=== PATIENT | female | born 1990 | race Caucasian/White ===

== ENCOUNTER → 2019-02-02 13:59 | Outpatient (CLI) | payer BC, SELFPAY ==
[2019-02-02 13:41] VITALS: BMI 24.0
[2019-02-02 14:22] LABS: Absolute Lymphocyte Count 1.96 X10^3/ul (0.83-4.51); Basophil# 0.03 X10^3/uL; Basophil% 0.3 % (0-1); Eosinophil# 0.07 X10^3/uL; Eosinophils% 0.6 % (0-5); Hematocrit 39.3 % (37-47); Hemoglobin 13.5 g/dl (12.0-15.0); Lymphocyte # 1.96 X10^3/ul (4.0); Lymphocyte % 17.9 % (19-41); Mean Corp Hgb Conc 34.4 g/gl (32-36); Mean Corpuscular Hgb 31.3 pg (27.0-32.0); Mean Platelet Vol. 8.7 fl (6.2-12.0); Monocyte# 0.81 X10^3/uL; Monocyte% 7.4 % (0-10); Neutrophil # 8.03 X10^3/uL (2.7-7.7); Neutrophil % 73.6 % (47-70); POSITIVE COUNT NO; POSITIVE DIFFERENTIAL NO; POSITIVE MORPHOLOGY NO; Platelet Count 304 K/mm3 (150-450); RBC Distribution Width CV 12.3 % (11.6-14.6); RBC Distribution Width SD 40.9 fl (35.1-43.9); Red Blood Count 4.32 M/mm3 (4.2-5.4); White Blood Count 10.9 K/mm3 (4.4-11.0)
[2019-02-02 15:43] LABS: HIV - WCH Non-Reactive (Nonreactive); Rubella IgG 129.4 IU/mL
[2019-02-02 20:49] LABS: Chlamydia Trachomatis by PCR Negative (Negative); Neisserai gonorrhoeae by PCR Negative (Negative); Probe Check PASS; Sample Adequacy Control PASS; Specimen Processing Control PASS
[2019-02-04 15:19] LABS: HEPATITIS B SURFACE AG Negative (Negative)
[2019-02-06 09:07] LABS: HPV Reflexed? NOT INDICATED
== END ==
PROVIDERS: Visit Provider Obstetrics & Gynecology
DX: Z12.4 Encounter for screening for malignant neoplasm of cervix (principal); Z3A.08 8 weeks gestation of pregnancy; Z34.90 Encounter for supervision of normal pregnancy, unspecified, unspecified trimester
CPT/HCPCS: 36415; 85025; 86592; 86703; 86762; 86850; 86900; 87086; 87088; 87340; 87491; 87591; 87624; 88175; G0145

== ENCOUNTER → 2019-03-03 | Outpatient (CLI) | payer BC, SELFPAY ==
[2019-03-03 15:09] VITALS: BMI 24.0
== END | disposition home or self-care (01) ==
LOC: LAB 15:59
PROVIDERS: Referring Provider Obstetrics & Gynecology; Visit Provider Obstetrics & Gynecology
DX: Z34.81 Encounter for supervision of other normal pregnancy, first trimester (principal)
CPT/HCPCS: 36415

== ENCOUNTER → 2019-03-31 | Outpatient (CLI) | payer BC, SELFPAY ==
[2019-03-31 15:48] VITALS: BMI 24.0
== END | disposition home or self-care (01) ==
PROVIDERS: Referring Provider Nurse Practitioner Women's Health; Visit Provider Nurse Practitioner Women's Health
DX: Z36.9 Encounter for antenatal screening, unspecified (principal)
CPT/HCPCS: 36415

== ENCOUNTER → 2019-06-16 | Outpatient (CLI) | payer BC, SELFPAY ==
[2019-06-16 16:08] VITALS: BMI 24.0
[2019-06-16 17:23] LABS: Absolute Lymphocyte Count 1.94 X10^3/uL (0.83-4.51); Absolute Neutrophil Count 10.3 X10^3/uL (2.0-7.7); Basophil# 0.05 X10^3/uL; Basophil% 0.4 % (0-1); Eosinophil# 0.12 X10^3/uL; Eosinophils% 0.9 % (0-5); Hematocrit 35.1 % (37-47); Hemoglobin 12.5 g/dL (12.0-15.0); Lymphocyte # 1.94 X10^3/ul (4.0); Lymphocyte % 14.5 % (19-41); Mean Corp Hgb Conc 35.6 g/dL (32-36); Mean Corpuscular Hgb 33.1 pg (27.0-32.0); Mean Corpuscular Volume 92.9 fL (81-99); Mean Platelet Vol. 8.6 fl (6.2-12.0); Monocyte# 0.85 X10^3/uL; Monocyte% 6.4 % (0-10); NRBC Flagged by Analyzer 0 % (0-5); Neutrophil # 10.28 X10^3/uL (2.7-7.7); Neutrophil % 76.9 % (47-70); Platelet Count 227 K/mm3 (150-450); RBC Distribution Width CV 12.4 % (11.6-14.6); RBC Distribution Width SD 41.7 fl (35.1-43.9); Red Blood Count 3.78 M/mm3 (4.2-5.4); White Blood Count 13.4 K/mm3 (4.4-11.0)
[2019-06-16 18:04] LABS: Glucose Challenge Gest 1H 50g 135 mg/dL (70-140)
== END | disposition home or self-care (01) ==
LOC: LAB 16:53
PROVIDERS: Referring Provider Obstetrics & Gynecology; Visit Provider Obstetrics & Gynecology
DX: Z34.90 Encounter for supervision of normal pregnancy, unspecified, unspecified trimester (principal); Z3A.27 27 weeks gestation of pregnancy
CPT/HCPCS: 36415; 82950; 85025

== ENCOUNTER → 2019-06-25 | Outpatient (CLI) | payer BC, SELFPAY ==
[2019-06-16 16:08] VITALS: BMI 24.0
[2019-06-25 07:39] LABS: Glucose GTT-Gestation. Fasting 89 mg/dL (<105)
[2019-06-25 09:08] LABS: Glucose GTT-Gestational 1 Hr 187 mg/dL (<190)
[2019-06-25 10:18] LABS: Glucose GTT-Gestational 2 Hr 117 mg/dL (<165)
[2019-06-25 11:14] LABS: Glucose GTT-Gestational 3 Hr 100 L (<145)
== END | disposition home or self-care (01) ==
LOC: LAB 06:56
PROVIDERS: Referring Provider Obstetrics & Gynecology; Visit Provider Obstetrics & Gynecology
DX: O99.810 Abnormal glucose complicating pregnancy (principal); Z3A.00 Weeks of gestation of pregnancy not specified
CPT/HCPCS: 36415; 82951; 82952

== ENCOUNTER → 2019-08-18 17:57 | Outpatient (CLI) | payer BC, SELFPAY ==
[2019-08-18 16:03] VITALS: BMI 24.0
== END ==
PROVIDERS: Visit Provider Obstetrics & Gynecology
DX: Z34.93 Encounter for supervision of normal pregnancy, unspecified, third trimester (principal); Z3A.36 36 weeks gestation of pregnancy
CPT/HCPCS: 87081

== ENCOUNTER → 2019-09-11 16:28 | Outpatient (CLI) | payer BC, SELFPAY ==
[2019-09-11 11:00] VITALS: BMI 24.0
--- NOTE | 2019-09-11 16:31 | US_ITS ---
STUDY: OBSTETRICAL ULTRASOUND - BIOPHYSICAL PROFILE REASON FOR EXAM: Female, 29 years old. well-being. PRIOR ULTRASOUND: None. TECHNIQUE: Transabdominal ultrasound evaluation was performed. FINDINGS: There is a single intrauterine fetus. The fetus is in a cephalic presentation. There is demonstrated cardiac activity with a heart rate of 146 bpm. There is a normal amniotic fluid volume. BIOPHYSICAL PROFILE: Breathing Movements (FBM): 2 Gross Body Movements (GBM): 2 Tone (FT): 2 Amniotic Fluid Volume (AFV): 2 TOTAL SCORE: 8 IMPRESSION: Normal biophysical profile of 07/02. Electronically Signed: Pablo Hurleypanfilojustina, at 22:43 EDT Tel , Service support , STUDY: SECOND AND THIRD TRIMESTER OBSTETRICAL ULTRASOUND REASON FOR EXAM: Female, 29 years old well-being. TECHNIQUE: Transabdominal TECHNICAL QUALITY: Adequate. PRIOR ULTRASOUND: None. FINDINGS: There is a single intrauterine fetus. The fetus is in a cephalic presentation. There is demonstrated cardiac activity with a heart rate of 146 bpm. There is a normal amniotic fluid volume. The largest amniotic fluid pocket measures 2.7 cm. The amniotic fluid index (SERGIO) is 7.0 cm. The placenta is posterior/right lateral. There are Grade 3 placental changes. The cervix is not well visualized. BIOMETRY: BPD: 9.6 cm: 39 weeks, 2 days HC: 35.3 cm: 40 weeks, 2 days AC: 36.0 cm: 40 weeks, 0 days FL: 7.7 cm: 39 weeks, 2 days age by current US: 40 weeks, 0 days. SHYANN by current US: 09/11/2019. Estimated weight: 3906 grams, +/- 570 grams. US/Biophysical Profile IMPRESSION: Single live intrauterine gestation at approximately 40 weeks and 0 days based on the current ultrasound. Electronically Signed: Pablo Blackman, at 22:47 EDT Tel , Service support ,
== END ==
PROVIDERS: Referring Provider Nurse Practitioner Women's Health; Visit Provider Nurse Practitioner Women's Health
DX: Z34.90 Encounter for supervision of normal pregnancy, unspecified, unspecified trimester (principal)
CPT/HCPCS: 76818

== ENCOUNTER 2019-09-11 19:44 | Outpatient (CLI) | payer BC, SELFPAY ==
[2019-09-11 11:00] VITALS: BMI 24.0
--- NOTE | 2019-09-11 22:42 | OB.TRI.NOTE ---
History of Present Illness Date of Service: 09/11/19 Was patient seen by the physician?: Yes Reason For Visit: NST Date of Service: 09/11/19 Final SHYANN: 09/10/19 Gestational age: 40 Weeks and 1 Days History of Present Illness: 29 yo sent from office for NST following BPP with score of 8/8, SERGIO 7, MVP 2.7 (verbal report from Del[facility] [employer] reporting results documented by [employer] Hannah; Pt reports active FM, denies LOF or VB; Allergies No Known Allergies Allergy (Verified 09/11/19 10:59) Physical Exam General: Alert, Oriented x3, Cooperative, No apparent distress HEENT: PERRLA, EOMI Neurological: Cranial nerves II-XII grossly intact, Neuro grossly intact NST - FHR Rate Baby A Baseline: 145 Variability:: Moderate Accelerations:: 15 x 15 Decelerations:: None NST Reactive:: Yes FHR Category:: Category I Impression/Plan Assessment: 29 yo at 40w1d gestation Reactive NST (Cat 1 FHTs) Reassuring BPP Plan: Discharge home with labor precautions, FM counts, increased rest and fluids Call Dr. Chakraborty's office on Saturday, September 14 for an appointment that day
[2019-09-11 22:59] VITALS: BMI 30.9
== END 2019-09-11 23:10 | disposition home or self-care (01) ==
LOC: WPOUT 20:00 → WP 21:21
PROVIDERS: Referring Provider Obstetrics & Gynecology; Visit Provider Obstetrics & Gynecology
DX: Z34.93 Encounter for supervision of normal pregnancy, unspecified, third trimester (principal); Z3A.40 40 weeks gestation of pregnancy
CPT/HCPCS: 59025; 59050; 76818; 99218; G0378

== ENCOUNTER 2019-09-15 06:06 | Inpatient (IN) | payer BC, SELFPAY ==
[2019-07-14 16:03] VITALS: BMI 24.0
[2019-09-14 09:40] VITALS: BMI 31.0
[2019-09-15 06:53] VITALS: BMI 31.2
[2019-09-15] MEDS: Lactated Ringers 1,000 ML 50 ML IV (07:07)
[2019-09-15] MEDS: Lactated Ringers 500 ML 999 ML IV ×2 (07:15→08:54)
[2019-09-15 07:22] LABS: Absolute Neutrophil Count 12.5 X10^3/uL (2.0-7.7); Basophil# 0.07 X10^3/uL; Basophil% 0.4 % (0-1); Eosinophil# 0.09 X10^3/uL; Eosinophils% 0.6 % (0-5); Hematocrit 37.1 % (37-47); Hemoglobin 12.7 g/dL (12.0-15.0); Lymphocyte % 11.2 % (19-41); Mean Corp Hgb Conc 34.2 g/dL (32-36); Mean Corpuscular Hgb 31.4 pg (27.0-32.0); Mean Corpuscular Volume 91.8 fL (81-99); Mean Platelet Vol. 9.2 fl (6.2-12.0); Monocyte# 1.54 X10^3/uL; Monocyte% 9.6 % (0-10); NRBC Flagged by Analyzer 0 % (0-5); Neutrophil # 12.45 X10^3/uL (2.7-7.7); Neutrophil % 77.4 % (47-70); POSITIVE DIFFERENTIAL YES; Platelet Count 264 K/mm3 (150-450); RBC Distribution Width CV 12.2 % (11.6-14.6); RBC Distribution Width SD 40.6 fl (35.1-43.9); Red Blood Count 4.04 M/mm3 (4.2-5.4); White Blood Count 16.1 K/mm3 (4.4-11.0)
[2019-09-15 07:28] LABS: Differential Indicated SCAN CRITERIA MET
[2019-09-15] MEDS: Ondansetron 4 MG/2 ML Vial IV (08:37)
[2019-09-15] MEDS: fentaNYL-bupivacaine (epidural) 100 ML BAG EPIDURAL ×2 (08:47→14:34)
--- NOTE | 2019-09-15 09:56 | PCM.HP.OB ---
- Problem List (1) Active labor at term Status: Acute (2) Abnormal glucose affecting Status: Acute Comment: 3 hr GTT 1 elevated value recommend dietary modifications, no diabetes (3) Influenza vaccine administered Status: Acute Comment: Given on 08/28/19 (4) Status: Acute Qualifiers: Comment: declines carrier screen. NIPT- low risk and AFP negative. anatomy low risk repeat in 2 wks for additional views. Limited US normal (5) Supervision of normal Status: Acute Qualifiers: Comment: PRR SHYANN 09/10/19 girl Vic History Date of Admission: 09/15/19 Final SHYANN: 09/10/19 Gestational age: 40 Weeks and 6 Days History of this : This is a 29 year-old, at 40 weeks gestational age presents IAL 4 cm dilated with regular contracitons some vb no lof. Allergies No Known Allergies Allergy (Verified 09/15/19 06:54) Home Medications: Home Medications Pepcid 1 tab PO BID 09/11/19 Prenatabs FA 1 tab PO DAILY 09/11/19 Docusate Sodium [Colace] 100 mg PO BID #60 cap 09/16/19 Naproxen [Naprosyn] 250 - 500 mg PO Q8H PRN PRN #30 tab 09/16/19 Oxycodone HCl/Acetaminophen [Percocet 5-325] 1 - 2 tablet PO Q4H PRN PRN 7 Days #15 tablet 09/16/19 Smoking Status: Never smoker Alcohol: None Number of Fetus(es): 1 NST - FHR Rate Baby A Baseline: 140 Variability:: Moderate Accelerations:: 15 x 15 Decelerations:: None NST Reactive:: Yes FHR Category:: Category I Uterine Activity:: 2-3 History Past Pregnancies: Past Pregnancies Delivery Date Name GA/Weeks Outcome Route Weight Infant Gender Labor Length Anesthesia Delivery Location Provider FOB Labs: Mom's Current Diagnoses Other acute postprocedural pain 09/15/19 Mom[facility] Problem List Problem Status Onset Code Active labor at term Acute Mom's Labs & Results 09/15/19 09/15/19 09/15/19 07:07 07:07 07:07 WBC 16.1 H RBC 4.04 L Hgb 12.7 Hct 37.1 MCV 91.8 MCH 31.4 MCHC 34.2 RDW Std Deviation 40.6 RDW Coeff of Barbara 12.2 Plt Count 264 MPV 9.2 Immature Gran % (Auto) 0.800 Neut % (Auto) 77.4 H Lymph % (Auto) 11.2 L [place] % (Auto) 9.6 Eos % (Auto) 0.6 Baso % (Auto) 0.4 Absolute Neuts (auto) 12.5 H Absolute Lymphs (auto) 1.80 Nucleated RBC % 0 Differential Comment COMMENT Diff Path Review Reviewed RPR Pending Blood Type B POSITIVE Antibody Screen NEGATIVE Course Did the patient receive Yes care? Labs Blood Type: B RH: POSITIVE RPR/VDRL/Syphilis will collect and send Rubella status Immune HbSAg Negative Date Done: 02/02/19 Chlamydia Negative Gonorrhea Negative HIV/AIDS Non-Reactive Group B Strep: Negative Current Obstetrical History Gestational Diabetes No Incompetent Cervix No Infertility No IUGR No Macrosomia No Hypertension/Pre-eclampsia No Placenta Previa/Abruption No PTL/PROM No Uterine anomaly No Oligohydramnios No: ultrasound on was told fluid a little low Polyhydramnios No Multiple gestation No Past Medical History Asthma No Diabetes No Hypertension No Heart disease No Mitral valve prolapse No Neurologic/Seizure disorder/ No Migraines Kidney disease No Liver disease No Varicosities No Clotting disorders/Hx of DVT No Thyroid Dysfunction No Other medical diseases No Psychiatric disorders No Major trauma No Abnormal PAP smear No Sleep apnea No Mammogram in the last 2 years No Social History Marital Status: Alleged father [place] Hx Smoking No Smoking Status Never smoker Expected Delivery Method: Spontaneous Vaginal Review of Systems Constitutional: Denies: Fever, Malaise Eyes: Denies: Blurred vision, Vision Change HEENT: Denies: Head Aches, Visual Changes Cardiovascular: Denies: Chest Pain, Palpitations Respiratory: Denies: Cough, Shortness of Breath, Wheezing Gastrointestinal: Denies: Abdominal Pain, Diarrhea, Nausea, Vomiting Genitourinary: Denies: Dysuria, Hematuria Musculoskeletal: Denies: Joint Pain, Muscle pain Skin: Denies: Lesions, Rash Neurological: Denies: Blurred vision, Focal weakness, Headaches Psychiatric: Denies: Anxiety, Depression Endocrine: Denies: Heat/ Cold Intolerance Hematologic/ Lymphatic: Denies: Easy Bruising, Easy Bleeding Physical Exam General: Alert, Cooperative, No apparent distress HEENT: Atraumatic, Normocephalic. Negative for: Thyromegaly, Lymphadenopathy Cardiovascular: Regular rate Lungs: Normal air movement Abdomen: Soft, Non Tender, Gravid Neurological: Deep Tendon Reflexes 2+/4 and Symmetrical, Neuro grossly intact. Negative for: Clonus LPTA: Normal external genitalia. Negative for: Vulvar lesions Estimated gestational size: Appropriate for gestational size Presentation: Cephalic Cervix Dilation (cm): 4 Assessment/Plan All Active Problems (Last Reviewed 09/14/19 @ 09:34 by Hannah Sepulveda) Active labor at term (Acute) Influenza vaccine administered (Acute) Abnormal glucose affecting (Acute) (Acute) Supervision of normal (Acute) This is a 29 year-old, , at 40 weeks gestational age presents IAL. Patient presents IAL, plan expectant management for , pitocin/AROM PRN if needed. Pain management: Plans epidural. GBS negative. Management of any complications: None I have reviewed the [facility] and made any clinically relevant updates.
[2019-09-15 14:18] LABS: Pathologist Review Reviewed
[2019-09-15] MEDS: Lactated Ringers 1,000 ML 200 ML IV (14:33)
[2019-09-15] MEDS: Oxytocin 30 units/NS 500 ml 30 UNITS/500 ML IV.SOLN 334 UNITS IV (17:39)
[2019-09-15] MEDS: Ketorolac 30 MG/ML Syringe IV (19:46)
[2019-09-15] MEDS: Acetaminophen 500 MG Tablet 1000 MG PO (21:47)
[2019-09-15] MEDS: Dibucaine 30 GM Tube 1 APPLIC TOPICAL (23:45)
[2019-09-16 00:04] VITALS: BP 114/58; PULSE 91; RESP 18; TEMP 37.1
--- NOTE | 2019-09-16 00:10 | NURSING ---
Pt unable to void 6 hours after ku removed at delivery. Pt straight cathed for 600 ml christina urine.
[2019-09-16] MEDS: Ketorolac 30 MG/ML Syringe IV ×4 (01:36→18:58)
[2019-09-16] MEDS: 0.9% Saline Lock 10 ML Syringe IV ×2 (01:37→07:21)
[2019-09-16 04:20] VITALS: BP 114/58; PULSE 77; RESP 18; TEMP 36.3
[2019-09-16] MEDS: Acetaminophen 500 MG Tablet 1000 MG PO ×2 (06:11→16:16)
[2019-09-16 08:30] VITALS: BP 97/54; PULSE 88; RESP 14; TEMP 36.7
[2019-09-16] MEDS: Senna/Docusate Sodium 1 Tablet PO (08:36)
--- NOTE | 2019-09-16 08:51 | PCM.PN.OB ---
Patient Problems: Active and Suspected Problems (Last Reviewed 09/14/19 @ 09:34 by Hannah Sepulveda) Active labor at term (Acute) Subjective: doing well no complaints pain controlled with toradol no CP SOB N V ambulating well tolerating po lochia moderate, going well - Physical Exam Vitals/I&O's: Vital Signs Temp Pulse Resp BP 97.4 F L 77 18 114/58 L 09/16/19 04:20 09/16/19 04:20 09/16/19 04:20 09/16/19 04:20 Weight: 176 lb 9.444 oz Body Mass Index (BMI) 31.2 Intake and Output for Last 24 Hours 09/14/19 09/15/19 09/16/19 23:59 23:59 23:59 Intake Total 3480.00 / 3480.00 Output Total 1700 / 1700 300 / 300 Balance 1780.00 / 1780.00 -300 / -300 General: Alert, Oriented x3 Abdomen: Soft, Non Tender, Non-Distended, - - FF below U Laboratory Results 09/15/19 07:07: Diff Path Review Reviewed Current Medications Acetaminophen (Tylenol) 1,000 mg PO Q8H PRN PRN PRN Reason: Pain Score 1-3/10 Last Admin: 09/16/19 06:11 Dose: 1,000 mg Documented by: Bisacodyl (Dulcolax) 10 mg RECTAL UD PRN PRN Reason: If no BM Dibucaine (Dibucaine) 1 applic TOPICAL TID PRN PRN; Protocol PRN Reason: Discomfort Last Admin: 09/15/19 23:45 Dose: 1 inch Documented by: Hydrocortisone (Hytone) 1 applic TOPICAL TID PRN PRN; Protocol PRN Reason: Discomfort Ketorolac Tromethamine (Toradol) 30 mg IV Q6H SORAYA Stop: 09/17/19 01:01 Last Admin: 09/16/19 07:21 Dose: 30 mg Documented by: Ketorolac Tromethamine (Toradol) 10 mg PO Q6 SORAYA Stop: 09/20/19 18:13 Methylergonovine Maleate (Methergine) 0.2 mg IM X1 PRN PRN Reason: Excess bleeding/uterine atony Naproxen (Naprosyn) 500 mg PO Q8H PRN PRN PRN Reason: Pain Score 1-3/10 Ondansetron HCl (Zofran) 4 mg IV Q4H PRN PRN PRN Reason: Nausea Oxycodone HCl (Oxyir) 5 - 10 mg PO Q4H PRN PRN PRN Reason: Pain Score 4-10/10 Senna/Docusate Sodium (Senokot-S, Lisset-Colace) 1 - 2 tablet PO DAILY PRN PRN PRN Reason: Constipation Last Admin: 09/16/19 08:36 Dose: 1 tablet Documented by: Simethicone (Mylicon) 80 mg PO PCHS PRN PRN Reason: Indigestion/Stomach pain Sodium Chloride () 5 - 15 ml IV UD PRN PRN Reason: SALINE FLUSH Last Admin: 09/16/19 07:21 Dose: 10 ml Documented by: Medical Necessity - Tobacco Use Smoking Status: Never smoker Assessment/Plan All Active Problems (Last Reviewed 09/14/19 @ 09:34 by Hannah Sepulveda) Active labor at term (Acute) Influenza vaccine administered (Acute) Abnormal glucose affecting (Acute) (Acute) Supervision of normal (Acute) s/p VAVD PPD # 1 1. routine post delivery care 2. breast feeding- support given 3. rh positive 4. rubella immune 5. Enc stool softener
[2019-09-16 12:15] VITALS: BP 120/79; PULSE 65; RESP 14; TEMP 36.8
[2019-09-16 16:24] VITALS: BP 114/74; PULSE 84; RESP 18; TEMP 37.3
[2019-09-16 19:47] VITALS: BP 119/68; PULSE 87; RESP 18; TEMP 36.3
--- NOTE | 2019-09-16 21:12 | PCM.OPRPT ---
Problem List (1) Active labor at term Status: Acute (2) Abnormal glucose affecting Status: Acute Comment: 3 hr GTT 1 elevated value recommend dietary modifications, no diabetes (3) Influenza vaccine administered Status: Acute Comment: Given on 08/28/19 (4) Status: Acute Qualifiers: Comment: declines carrier screen. NIPT- low risk and AFP negative. anatomy low risk repeat in 2 wks for additional views. Limited US normal (5) Supervision of normal Status: Acute Qualifiers: Comment: PRR SHYANN 09/10/19 girl Vic Vaginal Delivery Maternal Presentation: Active Labor 29-year-old G1, P0 at 40 weeks 5 days presents in active labor Amniotic Membrane Rupture Type: Artificial Amniotic Fluid Description: Clear Final SHYANN: 09/10/19 Gestational age: 40 Weeks and 6 Days Date of Procedure: 09/15/19 Pre-Operative Diagnosis: In active labor tachycardia and thick meconium with recurrent variabl Post-Operative Diagnosis: Same Surgery/ Procedure Performed: Vacuum Assisted Vaginal Delivery Type of Anesthesia: Epidural Description of Procedure: Patient began pushing and developed tachycardia with recurrent heart rate variable decelerations therefore the decision was made for vacuum application. Fetus was noted to have the vertex in the ROP position in the +3 station. Kiwi vacuum was applied and 3 pulse made with 2 contractions with 2 pop offs and after a right medial lateral episiotomy this resulted in delivery of the head without complication. The head was delivered atraumatically. The anterior and posterior shoulders delivered without complication followed by the rest of the infant and the was placed on the maternal abdomen. Delayed cord clamping was employed for approximately 60 seconds. Cord was clamped and cut and gentle traction was applied to the cord and the placenta delivered spontaneously immediately following it was noted to be intact with three-vessel cord. The perineum and vagina were inspected and noted to have a partial third-degree laceration that was repaired in the usual fashion with 2-0 PDS and 3-0 Vicryl Rapide. EBL was 300 cc. Patient and tolerated delivery well. Presentation: ROP Placental Delivery Description: Spontaneous Placenta Disposition: [facility] Cord Vessel Description: 3 Vessels Drain: Sparks to straight drain Estimated Blood Loss: 300 A gender: Female Episiotomy Description: Right Mediolateral, Perineal Extension/lac, 3rd degree Medications given after delivery: IV Pitocin Complications: None Multi Select Codes - Urinary/Genital Urinary/Genital CPT Codes: 46066 Vaginal Delivery global pkg - vacuum with 3rd degree laceration and episiotomy and repair
--- NOTE | 2019-09-16 21:31 | DCINST_ITS ---
Discharge Diet: No Restrictions Discharge Activity: Return to Normal Activity, May not drive while taking narcotic pain medications., May Shower May resume sexual activity in: 4-6 weeks Call your doctor if your incision/area has: Continuous Slow Oozing, Sudden Increased Bleeding, Increased Pain/ Swelling, Increased Redness, Foul Smelling Discharge Additional Instructions: If you experience any of the following, contact your healthcare provider. * Bleeding that soaks a pad every hour for 2 hours * Fever 100.4 or higher * Unrelieved incision or abdominal pain * Swelling, redness, discharge or bleeding from your incision or episiotomy site * Your incision begins to separate * Problems urinating (including inability to urinate or burning while urinating). * Visual changes * Severe headache * Flu-like symptoms * Pain or redness in one of both of your breasts * Pain, warmth, tenderness or swelling in your legs, especially the calf area * Frequent nausea and vomiting * Symptoms of depression or anxiety If you experience any of the following, call 911 or go to the nearest Emergency Room. * Chest pain * Problems breathing * Seizure activity * Partial or complete paralysis of a body part, slurred speech, weakness or drooping of the face, or a sudden inability to walk or hold your balance Allergies/Adverse Reactions: Allergies No Known Allergies Allergy (Verified 09/15/19 06:54) Medications to take at Discharge Pepcid 1 tab PO BID 09/11/19 Prenatabs FA 1 tab PO DAILY 09/11/19 Docusate Sodium [Colace] 100 mg PO BID #60 cap 09/16/19 Naproxen [Naprosyn] 250 - 500 mg PO Q8H PRN PRN #30 tab 09/16/19 Oxycodone HCl/Acetaminophen [Percocet 5-325] 1 - 2 tablet PO Q4H PRN PRN 7 Days #15 tablet 09/16/19 The following prescriptions were given: Docusate Sodium [Colace] 100 mg PO BID #60 cap Transmission Status: Pending to [facility] Naproxen [Naprosyn] 250 - 500 mg PO Q8H PRN PRN #30 tab PRN Reason: MILD PAIN Transmission Status: Pending to [facility] Oxycodone HCl/Acetaminophen [Percocet 5-325] 1 - 2 tablet PO Q4H PRN PRN 7 Days #15 tablet PRN Reason: Pain Transmission Status: Sent to [facility] Please Follow Up With: Chichi Chakraborty MD - [phone] When: Call to make an appointment with your doctor in 6 weeks. If you had elevated Blood pressure or 4th degree laceration you will need to be seen in 2 weeks. Primary Care Physician: JAVI OLMOS [Other] Test Results: Test results from this visit will be discussed in further detail at your follow- up appointment, if applicable.
[2019-09-17] MEDS: 0.9% Saline Lock 10 ML Syringe IV (00:34)
[2019-09-17] MEDS: Ketorolac 30 MG/ML Syringe IV (00:35)
[2019-09-17 00:42] VITALS: BP 108/66; PULSE 83; RESP 16; TEMP 37.1
[2019-09-17] MEDS: Acetaminophen 500 MG Tablet 1000 MG PO (02:52)
[2019-09-17 07:57] VITALS: BP 106/70; PULSE 60; RESP 18; TEMP 36.7
[2019-09-17] MEDS: Naproxen 250 MG Tablet 500 MG PO (08:09)
[2019-09-17] MEDS: Senna/Docusate Sodium 1 Tablet PO (08:09)
[2019-09-17] MEDS: oxyCODONE 5 MG Tablet PO ×2 (08:10→12:25)
--- NOTE | 2019-09-17 08:48 | PCM.PN.OB ---
Patient Problems: Active and Suspected Problems (Last Reviewed 09/14/19 @ 09:34 by Hannah Sepulveda) Third degree laceration of perineum during delivery, (Acute) Vacuum extraction, delivered, current hospitalization (Acute) Active labor at term (Acute) Subjective: doing well no complaints pain controlled no CP SOB N V ambulating well tolerating po lochia moderate, going well - Physical Exam Vitals/I&O's: Vital Signs Temp Pulse Resp BP 98.1 F 60 18 106/70 09/17/19 07:57 09/17/19 07:57 09/17/19 07:57 09/17/19 07:57 Oxygen Delivery Method Room Air Weight: 176 lb 9.444 oz Body Mass Index (BMI) 31.2 Intake and Output for Last 24 Hours 09/15/19 09/16/19 09/17/19 23:59 23:59 23:59 Intake Total 3480.00 / 3480.00 Output Total 1700 / 1700 1200 / 1200 Balance 1780.00 / 1780.00 -1200 / -1200 General: Alert, Oriented x3 Current Medications Acetaminophen (Tylenol) 1,000 mg PO Q8H PRN PRN PRN Reason: Pain Score 1-3 Last Admin: 09/17/19 02:52 Dose: 1,000 mg Documented by: Bisacodyl (Dulcolax) 10 mg RECTAL UD PRN PRN Reason: If no BM Dibucaine (Dibucaine) 1 applic TOPICAL TID PRN PRN; Protocol PRN Reason: Discomfort Last Admin: 09/15/19 23:45 Dose: 1 inch Documented by: Hydrocortisone (Hytone) 1 applic TOPICAL TID PRN PRN; Protocol PRN Reason: Discomfort Ketorolac Tromethamine (Toradol) 10 mg PO Q6 SORAYA Stop: 09/20/19 18:13 Methylergonovine Maleate (Methergine) 0.2 mg IM X1 PRN PRN Reason: Excess bleeding/uterine atony Naproxen (Naprosyn) 500 mg PO Q8H PRN PRN PRN Reason: Pain Score 1-3/10 Last Admin: 09/17/19 08:09 Dose: 500 mg Documented by: Ondansetron HCl (Zofran) 4 mg IV Q4H PRN PRN PRN Reason: Nausea Oxycodone HCl (Oxyir) 5 - 10 mg PO Q4H PRN PRN PRN Reason: Pain Score 4-10/10 Last Admin: 09/17/19 08:10 Dose: 5 mg Documented by: Senna/Docusate Sodium (Senokot-S, Lisset-Colace) 1 - 2 tablet PO DAILY PRN PRN PRN Reason: Constipation Last Admin: 09/17/19 08:09 Dose: 2 tablet Documented by: Simethicone (Mylicon) 80 mg PO PCHS PRN PRN Reason: Indigestion/Stomach pain Sodium Chloride () 5 - 15 ml IV UD PRN PRN Reason: SALINE FLUSH Last Admin: 09/17/19 00:34 Dose: 10 ml Documented by: Throat Lozenges (Dermoplast (Sp)) 1 applic TOPICAL 4X/DAY PRN PRN; Protocol PRN Reason: Pain/Inflammation Last Admin: 09/16/19 20:53 Dose: 1 applic Documented by: Medical Necessity - Tobacco Use Smoking Status: Never smoker Assessment/Plan All Active Problems (Last Reviewed 09/14/19 @ 09:34 by Hannah Sepulveda) Third degree laceration of perineum during delivery, (Acute) Vacuum extraction, delivered, current hospitalization (Acute) Active labor at term (Acute) Influenza vaccine administered (Acute) Abnormal glucose affecting (Acute) (Acute) Supervision of normal (Acute) s/p PPD # 2 1. routine post delivery care 2. breast feeding- support given 3. rh positive 4. rubella immune
[2019-09-17 14:34] VITALS: BP 119/77; PULSE 68; RESP 16; TEMP 36.9
[2019-09-18 02:37] LABS: Rapid Plasmin Reagin (RPR) NONREACTIVE (NONREACTIVE)
== END 2019-09-17 15:15 | disposition home or self-care (01) | DRG 768 ==
PROVIDERS: Admitting Provider Obstetrics & Gynecology; Referring Provider Obstetrics & Gynecology; Visit Provider Obstetrics & Gynecology
DX: O76 Abnormality in fetal heart rate and rhythm complicating labor and delivery (principal); Z37.0 Single live birth; O70.20 Third degree perineal laceration during delivery, unspecified; O77.0 Labor and delivery complicated by meconium in amniotic fluid; Z3A.40 40 weeks gestation of pregnancy
CPT/HCPCS: 59025; 59050; 85025; 86592; 86850; 86900; 86901; 99218; J7120; A4216; G0378; J2405

== ENCOUNTER → 2019-09-21 15:11 | Outpatient (CLI) | payer BC, SELFPAY ==
[2019-09-21 11:57] VITALS: BMI 31.2
== END ==
PROVIDERS: Visit Provider Obstetrics & Gynecology
DX: O70.20 Third degree perineal laceration during delivery, unspecified (principal)
CPT/HCPCS: 87070; 87077; 87186; 87205

== ENCOUNTER → 2019-10-30 11:45 | Outpatient (CLI) | payer BC, SELFPAY ==
[2019-10-30 11:29] VITALS: BMI 31.2
[2019-10-30 12:25] LABS: T4 Free Direct 0.97 ng/dL (0.76-1.46); Thyroid Stim Hormone (TSH) 1.25 uIU/mL (0.358-3.74)
== END ==
PROVIDERS: Referring Provider Obstetrics & Gynecology; Visit Provider Obstetrics & Gynecology
DX: E01.0 Iodine-deficiency related diffuse (endemic) goiter (principal)
CPT/HCPCS: 36415; 84439; 84443

== ENCOUNTER → 2019-11-04 11:02 | Outpatient (CLI) | payer BC, SELFPAY ==
[2019-10-30 11:29] VITALS: BMI 31.2
--- NOTE | 2019-11-04 11:11 | US_ITS ---
STUDY: THYROID ULTRASOUND REASON FOR EXAM: Female, 29 years old. Thyromegaly. TECHNIQUE: Ultrasound evaluation of the thyroid was performed with real-time and static burns-scale imaging. COMPARISON: None. FINDINGS: RIGHT LOBE: The right lobe of the thyroid gland measures 5.4 cm x 1.6 cm x 1.5 cm. There is a homogeneous echotexture. There are no demonstrated solid, cystic or complex lesions. LEFT LOBE: The left lobe of the thyroid gland measures 4.0 cm x 1.3 cm x 1.0 cm. There is a homogeneous echotexture. There are no demonstrated solid, cystic or complex lesions. ISTHMUS: The isthmus measures 2.0 mm. The regional lymph nodes are normal. US/Thyroid IMPRESSION: Slight enlargement of the right lobe of the thyroid. Electronically Signed: Jai Cole, at 14:22 EST , Service support ,
== END ==
PROVIDERS: Referring Provider Obstetrics & Gynecology; Visit Provider Obstetrics & Gynecology
DX: E01.0 Iodine-deficiency related diffuse (endemic) goiter (principal)
CPT/HCPCS: 76536

== ENCOUNTER → 2021-01-02 14:27 | Outpatient (CLI) | payer OTHER, SELFPAY ==
[2021-01-02 13:53] VITALS: BMI 26.2
[2021-01-02 14:49] LABS: Absolute Lymphocyte Count 2.21 X10^3/uL (0.83-4.51); Absolute Neutrophil Count 8.1 X10^3/uL (2.0-7.7); Basophil# 0.06 X10^3/uL; Basophil% 0.5 % (0-1); Eosinophil# 0.09 X10^3/uL; Eosinophils% 0.8 % (0-5); Hematocrit 35.7 % (37-47); Hemoglobin 12.9 g/dL (12.0-15.0); Lymphocyte # 2.21 X10^3/ul (4.0); Lymphocyte % 19.6 % (19-41); Mean Corp Hgb Conc 36.1 g/dL (32-36); Mean Corpuscular Hgb 31.9 pg (27.0-32.0); Mean Corpuscular Volume 88.1 fL (81-99); Mean Platelet Vol. 8.6 fl (6.2-12.0); Monocyte# 0.82 X10^3/uL; Monocyte% 7.3 % (0-10); NRBC Flagged by Analyzer 0 % (0-5); Neutrophil # 8.05 X10^3/uL (2.7-7.7); Neutrophil % 71.4 % (47-70); Platelet Count 318 K/mm3 (150-450); RBC Distribution Width CV 11.9 % (11.6-14.6); RBC Distribution Width SD 38.2 fl (35.1-43.9); Red Blood Count 4.05 M/mm3 (4.2-5.4); White Blood Count 11.3 K/mm3 (4.4-11.0)
[2021-01-02 16:07] LABS: HIV - WCH Non-Reactive (Nonreactive); Hepatitis B Surface Antigen Non-Reactive (Nonreactive); Hepatitis C Antibody Non-Reactive (Nonreactive); Rubella IgG Reactive (Nonreactive)
[2021-01-02 18:53] LABS: Amphetamine Urine VISTA NEGATIVE (<1000 ng/mL); Barbiturate Urine VISTA NEGATIVE (< 200 ng/mL); Benzodiazepine Urine VISTA NEGATIVE (< 200 ng/mL); Cocaine Urine VISTA NEGATIVE (< 300 ng/mL); Ecstacy Urine VISTA NEGATIVE (< 500 ng/mL); Methadone Urine VISTA NEGATIVE (< 300 ng/mL); PCP Urine VISTA NEGATIVE (< 25 ng/mL); THC Urine VISTA NEGATIVE (< 50 ng/mL); Vista UDS pH Range 6
[2021-01-05 01:42] LABS: Rapid Plasmin Reagin (RPR) NONREACTIVE (NONREACTIVE)
[2021-01-05 09:08] LABS: Chlamydia By Nucleic Acid AMP Negative (Negative)
[2021-01-05 10:54] LABS: Gonococcus By Nucleic Acid AMP Negative (Negative)
[2021-01-06 20:46] LABS: HPV APTIMA, High Risk Negative (Negative)
== END ==
PROVIDERS: Referring Provider Obstetrics & Gynecology; Visit Provider Obstetrics & Gynecology
DX: Z34.90 Encounter for supervision of normal pregnancy, unspecified, unspecified trimester (principal); Z12.4 Encounter for screening for malignant neoplasm of cervix
CPT/HCPCS: 36415; 80307; 85025; 86592; 86703; 86762; 86803; 86850; 86900; 86901; 87086; 87088; 87340; 87491; 87591; 87624; 88175; G0145

== ENCOUNTER → 2021-01-06 15:10 | Outpatient (CLI) | payer OTHER, SELFPAY ==
[2021-01-02 13:53] VITALS: BMI 26.2
--- NOTE | 2021-01-06 15:13 | US_ITS ---
STUDY: THYROID ULTRASOUND REASON FOR EXAM: Female, 30 years old. thyromegaly TECHNIQUE: Ultrasound evaluation of the thyroid was performed with real-time and static burns-scale imaging. COMPARISON: Prior thyroid ultrasound of 11/04/2019 FINDINGS: RIGHT LOBE: The right lobe of the thyroid gland measures 4.6 x 1.4 x 1.9 cm. There is a homogeneous echotexture. There are no demonstrated solid, cystic or complex lesions. LEFT LOBE: The left lobe of the thyroid gland measures 4.6 x 1.0 x 1.3 cm. There is a homogeneous echotexture. There are no demonstrated solid, cystic or complex lesions. ISTHMUS: The isthmus measures 0.4 centimeter. The regional lymph nodes are normal. US/Thyroid IMPRESSION: Normal ultrasound examination of the thyroid. Electronically Signed: Ivonne Rene MD at 16:09 EST , Service support ,
== END ==
PROVIDERS: PCP Family Medicine; Referring Provider Obstetrics & Gynecology; Visit Provider Obstetrics & Gynecology
DX: E04.9 Nontoxic goiter, unspecified (principal)
CPT/HCPCS: 76536

== ENCOUNTER → 2021-05-19 09:12 | Outpatient (CLI) | payer OTHER, SELFPAY ==
[2021-04-28 09:32] VITALS: BMI 26.5
[2021-05-19 09:27] LABS: Absolute Lymphocyte Count 1.74 X10^3/uL (0.83-4.51); Absolute Neutrophil Count 7.3 X10^3/uL (2.0-7.7); Basophil# 0.04 X10^3/uL; Basophil% 0.4 % (0-1); Eosinophil# 0.13 X10^3/uL; Eosinophils% 1.3 % (0-5); Hematocrit 34.8 % (37-47); Hemoglobin 12.1 g/dL (12.0-15.0); Lymphocyte # 1.74 X10^3/ul (0.83-4.51); Lymphocyte % 17.6 % (19-41); Mean Corp Hgb Conc 34.8 g/dL (32-36); Mean Corpuscular Hgb 31.9 pg (27.0-32.0); Mean Corpuscular Volume 91.8 fL (81-99); Mean Platelet Vol. 8.2 fl (6.2-12.0); Monocyte% 6.1 % (0-10); NRBC Flagged by Analyzer 0 % (0-5); Neutrophil # 7.31 X10^3/uL (2.7-7.7); Neutrophil % 73.7 % (47-70); Platelet Count 216 K/mm3 (150-450); RBC Distribution Width CV 12.3 % (11.6-14.6); RBC Distribution Width SD 41.1 fl (35.1-43.9); Red Blood Count 3.79 M/mm3 (4.2-5.4); White Blood Count 9.9 K/mm3 (4.4-11.0)
[2021-05-19 09:36] LABS: Glucose Challenge Gest 1H 50g 134 mg/dL (70-140)
== END ==
PROVIDERS: PCP Family Medicine; Referring Provider Obstetrics & Gynecology; Visit Provider Obstetrics & Gynecology
DX: Z34.92 Encounter for supervision of normal pregnancy, unspecified, second trimester (principal); Z13.1 Encounter for screening for diabetes mellitus
CPT/HCPCS: 36415; 82950; 85025

== ENCOUNTER → 2021-07-14 | Outpatient (CLI) | payer OTHER, SELFPAY | END | disposition home or self-care (01) | LOC: LABSPEC 15:38 | PROVIDERS: PCP Family Medicine; Visit Provider Obstetrics & Gynecology | DX: Z34.80 Encounter for supervision of other normal pregnancy, unspecified trimester (principal) | CPT/HCPCS: 87081 ==

== ENCOUNTER 2021-08-06 16:35 | Inpatient (IN) | payer OTHER, SELFPAY ==
[2021-08-06] VITALS (51 sets, daily range): BP systolic 99–138; BP diastolic 56–85; PULSE 44–84; TEMP 36.4–36.7; O2SAT 83–100; BMI 31.2
[2021-08-06] MEDS: Lactated Ringers 500 ML 999 ML IV ×2 (16:45→18:40)
[2021-08-06 17:10] LABS: Absolute Neutrophil Count 6.9 X10^3/uL (2.0-7.7); Basophil# 0.03 X10^3/uL; Basophil% 0.3 % (0-1); Eosinophil# 0.09 X10^3/uL; Eosinophils% 0.9 % (0-5); Hematocrit 35.5 % (37-47); Hemoglobin 12.2 g/dL (12.0-15.0); Lymphocyte % 20.2 % (19-41); Mean Corp Hgb Conc 34.4 g/dL (32-36); Mean Corpuscular Volume 90.1 fL (81-99); Mean Platelet Vol. 9.4 fl (6.2-12.0); Monocyte# 0.77 X10^3/uL; Monocyte% 7.8 % (0-10); NRBC Flagged by Analyzer 0 % (0-5); Neutrophil # 6.92 X10^3/uL (2.7-7.7); Platelet Count 287 K/mm3 (150-450); RBC Distribution Width CV 12.7 % (11.6-14.6); RBC Distribution Width SD 41.6 fl (35.1-43.9); Red Blood Count 3.94 M/mm3 (4.2-5.4); White Blood Count 9.9 K/mm3 (4.4-11.0)
[2021-08-06] MEDS: Lactated Ringers 1,000 ML 200 ML IV (17:16)
[2021-08-06] MEDS: fentaNYL-bupivacaine (epidural) 100 ML BAG EPIDURAL (18:00)
--- NOTE | 2021-08-06 19:11 | HP.PCM.OB_ITS ---
HPI - General General Date of Admission: 08/06/21 HPI Narrative MAGDALENA RICKS, is a 30 F who presents IAL 6 cm dilated no vb lof good fm and increasingly regular ctx. Maternal Data Information SHYANN Calculator Estimated Delivery Date Method Current WG Current Estimate 08/11/21 LMP (Certain) 39w 2d [facility] Medical History (Updated 08/06/21 @ 19:[address] Chichi Chakraborty MD) Enlargement of thyroid History of episiotomy Home Medications vitamin#30 30 mg iron-10 mg iron-folic acid 1 mg-omg3 capsule 1 cap PO cap 10/07/19 [History Last Taken 1 Day Ago ~08/05/21] docusate sodium 100 mg capsule 100 mg PO .PRN cap 02/03/21 [History Last Taken 1 Day Ago ~08/05/21] omeprazole magnesium [Prilosec OTC] 20 mg PO DAILY 08/06/21 [History Last Taken 1 Day Ago ~08/05/21] Allergy/AdvReac Type Severity Reaction Status Date / Time No Known Allergies Allergy Verified 07/28/21 09:38 Social History adopted: No household members: family housing: house number of children: 1 Smoking Status: Never smoker second hand exposure: No alcohol intake: former details: occasionally substance use type: does not use caffeine: Yes what type of physical activity do you participate in: other details: spinning and strength clas frequency: 3-4 times per week seatbelt use: always do you feel safe at home: Yes additional social history: - 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 Date Name GA/Weeks Outcome Route Bth Weight Gen Labor Lgth Anesthesia Del Locatn Provider FOB 09/15/19 Yara 40 live - full term vacuum 7lbs 9oz Female e pidural [facility] Delivery Date: 09/15/19 VAVD, tachy, thick meconium, 3 degree lac/episiotomy Eleonora Souza Visit Details Expected Delivery Route/Plan Labor Preferences- labor support person: Vic labor intervention preferences: no specifics pain management options preferred: Epidural cut cord/dad catch: yes : PP control planned: NFP discussed possible routes of delivery and associated risks: [] special requests: [] Plans covid status: non immune flu vaccine: given tdap vaccine: given rhogam: na LARC form signed: 06/02 movement and labor precautions reviewed. Problem list reviewed and updated with the most current plan of care details and appropriate orders placed. Relevant counseling for the gestational age provided. Continue routine care and follow up unless otherwise noted in visit notes/problem list details OB Flowsheet Initial Weight: 148 lb Date -?-?-?-?-?-?-?-?-?-?-?-?- EGA Weight BP Urine Prot -?-?-?-?-?-?-?-?-?-?-?-?- Glucose FHR FuHt Pres Dilation -?-?-?-?-?-?-?-?-?-?-?-?- Effaced St Visit Note 01/02/21 -?-?-?-?-?-?-?-?-?-?-?-?- 8w 3d 148 lb (+0 oz) 124/70 -?-?-?-?-?-?-?-?-?-?-?-?- 165 -?-?-?-?-?-?-?-?-?-?-?-?- SM- CRL cons wit h LMP SM- CRL 1.8cm cons with LMP 02/03/21 -?-?-?-?-?-?-?-?-?-?-?-?- 13w 0d 147 lb (-16 oz) 118/74 Negative -?-?-?-?-?-?-?-?-?-?-?-?- Negative 145 -?-?-?-?-?-?-?-?-?-?-?-?- GP - no cramping or bleeding. Discussed medications for constipation and headaches. PRR. 03/03/21 -?-?-?-?-?-?-?-?-?-?-?-?- 17w 0d 150 lb (+2 lb) 100/60 Negative -?-?-?-?-?-?-?-?-?-?-?-?- Negative 145 -?-?-?-?-?-?-?-?-?-?-?-?- SM- no vb crampi gn discussed significant GERD, discussed prescription pepcid and if doesn't work swithc to prilosec 03/31/21 -?-?-?-?-?-?-?-?-?-?-?-?- 21w 0d 156 lb (+8 lb) 98/70 Negative -?-?-?-?-?-?-?-?-?-?-?-?- Negative 140 -?-?-?-?-?-?-?-?-?-?-?-?- SM- no vb crampi ng had anatomy scan- obtain results 04/28/21 -?-?-?-?-?-?-?-?-?-?-?-?- 25w 0d 160 lb (+12 lb) 130/72 Negative -?-?-?-?-?-?-?-?-?-?-?-?- Negative 150 25 -?-?-?-?-?-?-?-?-?-?-?-?- GP - no LOF, VB, DFM, ctx. Discussed GCT next visit. 05/19/21 -?-?-?-?-?-?-?-?-?-?-?-?- 28w 0d 164 lb (+16 lb) 110/72 Negative -?-?-?-?-?-?-?-?-?-?-?-?- Negative 150 29 Cephalic -?-?-?-?-?-?-?-?-?-?-?-?- SM- no vb lof go od fm no regular ctx 06/02/21 -?-?-?-?-?-?-?-?-?-?-?-?- 30w 0d 167 lb 6 oz (+19 lb 6 oz) 112/70 Negative -?-?-?-?-?-?-?-?-?-?-?-?- Negative 145 30 Cephalic -?-?-?-?-?-?-?-?-?-?-?-?- GP - no LOF, VB, DFM, ctx. Discussed BC - plans NFP. LARC form signed. 06/16/21 -?-?-?-?-?-?-?-?-?-?-?-?- 32w 0d 169 lb (+21 lb) 100/72 Negative -?-?-?-?-?-?-?-?-?-?-?-?- Negative 150 32 Cephalic -?-?-?-?-?-?-?-?-?-?-?-?- Sm- no vb lof go od fm no reuglar ctx 07/03/21 -?-?-?-?-?-?-?-?-?-?-?-?- 34w 3d 176 lb 4 oz (+28 lb 4 oz) 110/78 Negative -?-?-?-?-?-?-?-?-?-?-?-?- Negative 130 34 Cephalic -?-?-?-?-?-?-?-?-?-?-?-?- GP - no LOF, VB, DFM, ctx. Denies complaints. 07/14/21 -?-?-?-?-?-?-?-?-?-?-?-?- 36w 0d 175 lb 6 oz (+27 lb 6 oz) 114/80 Negative -?-?-?-?-?-?-?-?-?-?-?-?- Negative 155 36 Cephalic 1 -?-?-?-?-?-?-?-?-?-?-?-?- 50 -2 GP - no LO F, VB, DFM, ctx. GBS today. 07/21/21 -?-?-?-?-?-?-?-?-?-?-?-?- 37w 0d 177 lb (+29 lb) 118/80 Negative -?-?-?-?-?-?-?-?-?-?-?-?- Negative 130 37 Cephalic 2 -?-?-?-?-?-?-?-?-?-?-?-?- 50 -2 SM- no vb lof good fm nor egualr ctx 07/28/21 -?-?-?-?-?-?-?-?-?-?-?-?- 38w 0d 180 lb 8 oz (+32 lb 8 oz) 110/80 Negative -?-?-?-?-?-?-?-?-?-?-?-?- Negative 145 38 Cephalic 2 -?-?-?-?-?-?-?-?-?-?-?-?- 50 -2 GP - no LO F, VB, dFM, ctx. Denies complaints. 08/04/21 -?-?-?-?-?-?-?-?-?-?-?-?- 39w 0d 182 lb (+34 lb) 100/82 Negative -?-?-?-?-?-?-?-?-?-?-?-?- Negative 140 39 Cephalic 3 -?-?-?-?-?-?-?-?-?-?-?-?- 50 -2 SM- no vb lof good fm no reulgar ctx 08/06/21 -?-?-?-?-?-?-?-?-?-?-?-?- 39w 2d 176 lb 5.917 oz (+28 lb 5.917 oz) 134/80 120/79 138/83 121/81 127/85 124/85 105/59 105/56 103/58 99/59 103/59 105/62 103/61 118/69 109/70 117/79 128/77 123/81 120/85 126/74 -?-?-?-?-?-?-?-?-?-?-?-?- -?-?-?-?-?-?-?-?-?-?-?-?- NST FHR Rate Baby A Baseline: 140 Variability:: Moderate Accelerations:: 15 x 15 Decelerations:: None NST Reactive:: Yes FHR Category:: Category I Uterine Activity:: q3-5 ROS Constitutional Constitutional: Reports systems reviewed and no addt'l complaints, except as documented ENT HEENT: Reports systems reviewed and no addt'l complaints, except as documented Cardiovascular Cardiovascular: Reports systems reviewed and no addt'l complaints, except as documented Respiratory/Chest Respiratory/Chest: Reports systems reviewed and no addt'l complaints, except as documented Gastrointestinal Gastrointestinal: Reports systems reviewed and no addt'l complaints, except as documented and nausea; Denies abdominal pain Genitourinary Genitourinary: Reports systems reviewed and no addt'l complaints, except as documented, contractions Details: present and frequency (regular ) and movement Details: present Musculoskeletal Musculoskeletal: Reports systems reviewed and no addt'l complaints, except as documented Integumentary Integumentary: Reports as per HPI Neurologic Neurologic: Reports systems reviewed and no addt'l complaints, except as documented Endocrine Endocrinology: Reports systems reviewed and no addt'l complaints, except as documented Vital Signs Vital Signs Vital Signs: 08/06/21 16:31 08/06/21 16:54 08/06/21 17:42 Temperature Temperature Source Pulse Rate 81 71 Blood Pressure 134/80 H 120/79 BP Systolic 134 120 BP Diastolic 80 79 Pulse Ox 98 99 08/06/21 17:43 08/06/21 17:47 08/06/21 17:48 Temperature Temperature Source Pulse Rate 66 59 L Blood Pressure 138/83 H 121/81 H BP Systolic 138 121 BP Diastolic 83 81 Pulse Ox 99 08/06/21 17:52 08/06/21 17:53 08/06/21 17:56 Temperature Temperature Source Pulse Rate 70 83 Blood Pressure 127/85 H BP Systolic 127 BP Diastolic 85 Pulse Ox 99 93 08/06/21 17:57 08/06/21 17:58 08/06/21 18:02 Temperature Temperature Source Pulse Rate 71 75 71 Blood Pressure 124/85 H BP Systolic 124 BP Diastolic 85 Pulse Ox 98 99 08/06/21 18:03 08/06/21 18:06 08/06/21 18:07 Temperature 98.1 F Temperature Source Temporal Pulse Rate 62 Blood Pressure 105/59 L BP Systolic 105 BP Diastolic 59 Pulse Ox 99 08/06/21 18:08 08/06/21 18:12 08/06/21 18:13 Temperature Temperature Source Pulse Rate 67 62 63 Blood Pressure 105/56 L 103/58 L BP Systolic 105 103 BP Diastolic 56 58 Pulse Ox 98 08/06/21 18:17 08/06/21 18:18 08/06/21 18:22 Temperature Temperature Source Pulse Rate 61 61 Blood Pressure 99/59 L BP Systolic 99 BP Diastolic 59 Pulse Ox 99 99 08/06/21 18:23 08/06/21 18:27 08/06/21 18:28 Temperature Temperature Source Pulse Rate 62 58 L Blood Pressure 103/59 L 105/62 BP Systolic 103 105 BP Diastolic 59 62 Pulse Ox 98 08/06/21 18:32 08/06/21 18:33 08/06/21 18:37 Temperature Temperature Source Pulse Rate 59 L Blood Pressure 103/61 BP Systolic 103 BP Diastolic 61 Pulse Ox 99 100 08/06/21 18:38 08/06/21 18:42 08/06/21 18:43 Temperature Temperature Source Pulse Rate 57 L 71 63 Blood Pressure 118/69 109/70 BP Systolic 118 109 BP Diastolic 69 70 Pulse Ox 100 08/06/21 18:47 08/06/21 18:48 08/06/21 18:52 Temperature Temperature Source Pulse Rate 82 71 Blood Pressure 117/79 BP Systolic 117 BP Diastolic 79 Pulse Ox 100 100 08/06/21 18:53 08/06/21 18:55 08/06/21 18:57 Temperature Temperature Source Pulse Rate 68 83 Blood Pressure 128/77 H BP Systolic 128 BP Diastolic 77 Pulse Ox 89 100 08/06/21 18:58 08/06/21 19:03 08/06/21 19:08 Temperature Temperature Source Pulse Rate 71 75 80 Blood Pressure 123/81 H 120/85 H 126/74 H BP Systolic 123 120 126 BP Diastolic 81 85 74 Pulse Ox 100 100 Weight Weight: 176 lb 5.917 oz Body Mass Index (BMI) 31.2 Physical Exam Const alert, oriented x3 and healthy appearing Constitutional Narrative: uncomfortable with contractions HEENT normocephalic and moist oral mucous membranes Head and Scalp: atraumatic Neck full ROM, no lymphadenopathy, supple and thyroid normal General: trachea midline Thyroid: thyroid normal Lymph Lymphatic: no lymphadenopathy noted Chest inspection of chest normal Resp normal respiratory effort Cardio regular rate GI normal to inspection, nondistended, normoactive bowel sounds, soft to palpation and non-tender Inspection: gravid external exam normal Bimanual Exam - Vag & Uterus: uterus non-tender Manual OB Exam: estimated gestational size appropriate, presentation cephalic, dilated, effaced and station Extremity normal to inspection General Extremity: Negative for edema Skin no rashes or lesions noted Neuro deep tendon reflexes 2+ bilaterally Motor Exam: strength 5/5 throughout and clonus absent Psych mental status grossly normal Labs Labs Labs: Blood Type B POSITIVE Antibody Screen NEGATIVE Hct 35.5 % (37-47) L Hgb 12.2 g/dL (12.0-15.0) Pap Smear Negative Rubella IgG Antibody Reactive (Nonreactive) Hep Bs Antigen Non-Reactive (Nonreactive) Neisseria gonorrhoeae DNA (STEWART) Negative (Negative) HIV 1&2 Antibody Non-Reactive (Nonreactive) C.trachomatis DNA (PCR) Negative (Negative) Glucose 1 Hr 50 gm 134 mg/dL (70-140) Rhogam given: No Miscellaneous Test Assessment & Plan (1) Supervision of other normal : COMMENT: PRR SHYANN: 08/11/2021 surprise PC: Yara Spouse: Vic (2) History of episiotomy: COMMENT: VAVD; 3rd degree laceration/episiotomy- post infection (3) : QUALIFIERS: Weeks of gestation: 38 weeks Qualified Code(s): Z3A.38 - 38 weeks gestation of COMMENT: declines carrier, ntd and genetic testing, nl anatomy. GBS neg (4) Active labor at term: PLAN: admit Exp management epidural
--- NOTE | 2021-08-06 19:13 | EX.PCM.OBRPT ---
Assessment & Plan (1) Active labor at term: (2) Vaginal delivery: COMMENT: 39 SM IAL (3) : QUALIFIERS: Weeks of gestation: 38 weeks Qualified Code(s): Z3A.38 - 38 weeks gestation of COMMENT: declines carrier, ntd and genetic testing, nl anatomy. GBS neg (4) Enlargement of thyroid: COMMENT: slight enlargement of right lobe. repeat US in 6 months (5) History of episiotomy: COMMENT: VAVD; 3rd degree laceration/episiotomy- post infection (6) Supervision of other normal : COMMENT: PRR SHYANN: 08/11/2021 surprise PC: Yara Spouse: Vic Maternal Data Information SHYANN Calculator Estimated Delivery Date Method Current WG Current Estimate 08/11/21 LMP (Certain) 39w 2d Vaginal Delivery Operative Information Pre-Operative Diagnosis: IAL Post-Operative Diagnosis: same Surgery / Procedure Performed: Spontaneous Vaginal Delivery Type of Anesthesia: Epidural Special Medications: none Estimated Blood Loss: 100 Fluids Replaced: crystalloid Findings Description of Procedure: Patient began pushing and delivered the head in the OSCAR presentation. The head was delivered atraumatically . The anterior and posterior shoulders delivered without complication followed by the rest of the infant and the was placed on the maternal abdomen. Delayed cord clamping was employed for approximately 60 seconds. Cord was clamped and cut and gentle traction was applied to the cord and the placenta delivered spontaneously immediately following it was noted to be intact with three-vessel cord. The perineum and vagina were inspected and noted to have a second-degree perineal laceration repaired in the usual fashion with 3-0 Vicryl Rapide. EBL was 100 cc. Patient and infant tolerated delivery well. Presentation: OSCAR Amniotic Membrane Rupture Type: Spontaneous Amniotic Fluid Description: Lightly stained meconium Placental Delivery Description: Spontaneous Placenta Disposition: [facility] Cord Vessel Description: 3 Vessels Cord Entanglement: None and Around neck x 1, loose Infant A Gender: Female Delayed Cord Clamping: Yes Post Vaginal Delivery Medications Given After Delivery: IV Pitocin Episiotomy Description: None Laceration: Perineal Extension/lac and 2nd degree Complication Complications: None Procedures Urinary/Genital [id number]: [id number] Vaginal Delivery [facility]
--- NOTE | 2021-08-06 19:14 | PCM.DC ---
Discharge Instructions Diet Discharge Diet: No restrictions Activity Discharge Activity: Return to Normal Activity, May Not Drive (while taking narcotic pain medications.) and May Shower May resume sexual activity in: 4-6 weeks Dressing / Incision Call your doctor if your incision/area has: Continuous Slow Oozing, Sudden Increased Bleeding, Increased Pain/ Swelling, Increased Redness and Foul Smelling Discharge Follow Up Care Please Follow Up With: Chichi Chakraborty MD When: Call [phone] to make an appointment with your doctor in 6 weeks. If you had elevated blood pressure or 4th degree laceration, you will need to be seen in 2 weeks. Test Results: Test results from this visit will be discussed in further detail at your follow-up appointment, if applicable. Discharge Plan Admission Admit Date/Time: 08/06/21 16:35 Primary Reason for Your Visit: vaginal delivery Attending Provider: Chichi Chakraborty Primary Care Provider: Mary Kay Tyson Discharge Orders/Prescriptions Prescriptions: No Action vitamin#30 30 mg iron-10 mg iron-folic acid 1 mg-omg3 capsule 30 mg iron-10 mg iron-1 mg capsule 1 cap PO RF: 0 docusate sodium [Colace] 100 mg capsule 100 mg PO .PRN RF: 0 omeprazole magnesium [Prilosec OTC] 20 mg tablet,delayed release (DR/EC) 20 mg PO DAILY RF: 0 Referrals / Follow Up: Mary Kay Tyson MD [Primary Care Provider] - Disposition Disposition (needs filled in before D/C Order can be placed): Home, Self Care
[2021-08-06] MEDS: Oxytocin 30 units/NS 500 ml 30 UNITS/500 ML IV.SOLN 334 UNITS IV (19:34)
[2021-08-06] MEDS: Ketorolac 10 MG Tablet PO (20:48)
[2021-08-06] MEDS: AMOXICILLIN 500 MG CAPSULE PO (22:13)
[2021-08-06] MEDS: 0.9% Saline Lock 10 ML Syringe IV (22:13)
[2021-08-07 00:36] VITALS: BP 101/51; PULSE 66; RESP 18; TEMP 36.4
[2021-08-07] MEDS: Acetaminophen 500 MG Tablet 1000 MG PO ×2 (00:42→16:27)
[2021-08-07] MEDS: Ketorolac 10 MG Tablet PO ×3 (04:35→21:55)
[2021-08-07 04:37] VITALS: BP 104/59; PULSE 71; RESP 18; TEMP 36.1
[2021-08-07] MEDS: AMOXICILLIN 500 MG CAPSULE PO ×3 (06:10→22:22)
[2021-08-07 07:53] VITALS: BP 102/58; PULSE 63; RESP 16; TEMP 36.1
[2021-08-07 11:07] VITALS: BP 112/75; PULSE 63; RESP 16; TEMP 36.2
--- NOTE | 2021-08-07 12:52 | PN.OBGYN_ITS ---
Subjective Subjective Patient doing well without complaints. Tolerating PO. Ambulating and voiding without difficulty. feeding well. Denies chest pain, shortness of breath, calf pain/swelling, fevers, chills, lightheadedness. Objective Data Objective Data Vital Signs: Vital Signs Temp Pulse Resp BP Pulse Ox 97.2 F L 63 16 112/75 83 08/07/21 11:07 08/07/21 11:07 08/07/21 11:07 08/07/21 11:07 08/06/21 19:39 Oxygen Delivery Method Room Air Weight: 176 lb 5.917 oz Body Mass Index (BMI) 31.2 Intake & Output: Intake and Output for Last 24 Hours 08/05/21 08/06/21 08/07/21 23:59 23:59 23:59 Intake Total 1853.33 / 1853.33 Output Total 400 / 400 300 / 300 Balance 1453.33 / 1453.33 -300 / -300 Lab / Micro Data Result Diagrams: 08/06/21 16:45 Labs: Laboratory Results - last 24 hr 08/06/21 16:45: WBC 9.9, RBC 3.94 L, Hgb 12.2, Hct 35.5 L, MCV 90.1, MCH 31.0, MCHC 34.4, RDW Std Deviation 41.6, RDW Coeff of Barbara 12.7, Plt Count 287, MPV 9.4, Immature Gran % (Auto) 0.800, Neut % (Auto) 70.0, Lymph % (Auto) 20.2, [place] % (Auto) 7.8, Eos % (Auto) 0.9, Baso % (Auto) 0.3, Absolute Neuts (auto) 6.9, Absolute Lymphs (auto) 2.00, Nucleated RBC % 0 08/06/21 16:45: Blood Type B POSITIVE, Antibody Screen NEGATIVE Micro: Microbiology 08/06/21 15:15 Nasal Secretion SARS-CoV-2 Antigen (Rapid) - Final ROS Constitutional Constitutional: Reports systems reviewed and no addt'l complaints, except as documented Cardiovascular Cardiovascular: Reports systems reviewed and no addt'l complaints, except as documented Respiratory/Chest Respiratory/Chest: Reports systems reviewed and no addt'l complaints, except as documented Gastrointestinal Gastrointestinal: Reports systems reviewed and no addt'l complaints, except as documented Physical Exam Const alert, oriented x3 and no apparent distress HEENT Head and Scalp: atraumatic Resp normal respiratory effort GI soft to palpation and non-tender Bimanual Exam - Vag & Uterus: uterus non-tender Uterus Palpation: uterus fundus firm (below Umbilicus) Assessment & Plan (1) Vaginal delivery: COMMENT: 39 SM IAL girl Maria Guadalupe PLAN: s/p PPD # 1 1. routine post delivery care 2. breast feeding- support given 3. rh positive 4. rubella immune
[2021-08-07 16:18] VITALS: BP 105/62; PULSE 72; RESP 16; TEMP 36.2
[2021-08-07 21:45] VITALS: BP 113/61; PULSE 63; RESP 16; TEMP 36.6
[2021-08-08 02:40] VITALS: BP 108/57; PULSE 68; RESP 16; TEMP 35.8
[2021-08-08] MEDS: AMOXICILLIN 500 MG CAPSULE PO (06:11)
[2021-08-08 08:24] VITALS: BP 114/69; PULSE 72; RESP 16; TEMP 36.1
[2021-08-08] MEDS: Naproxen 500 MG Tablet PO (08:30)
== END 2021-08-08 10:45 | disposition home or self-care (01) | DRG 807 ==
LOC: WPOUT 16:37 → WP 16:37
PROVIDERS: Admitting Provider Obstetrics & Gynecology; PCP Family Medicine; Referring Provider Obstetrics & Gynecology; Visit Provider Obstetrics & Gynecology
DX: O77.0 Labor and delivery complicated by meconium in amniotic fluid (principal); Z37.0 Single live birth; O69.81X0 Labor and delivery complicated by cord around neck, without compression, not applicable or unspecified; Z3A.39 39 weeks gestation of pregnancy; O70.1 Second degree perineal laceration during delivery
CPT/HCPCS: 59025; 59050; 85025; 86850; 86900; 86901; 87426; 99218; J7120; A4216; G0378

== ENCOUNTER → 2021-08-10 13:58 | Outpatient (CLI) | payer OTHER, SELFPAY ==
--- NOTE | 2021-08-10 14:01 | US_ITS ---
STUDY: ULTRASOUND OF THE FEMALE PELVIS - COMPLETE REASON FOR EXAM: Female, 30 years old. BLEEDING -- 3 days post LMP: TECHNIQUE: Transabdominal and Transvaginal TECHNICAL QUALITY: Adequate. COMPARISON: None. FINDINGS: The uterus is anteverted and is in a midline position. The uterus measures 17.8 x 14.4 x 8.8 cm. Normal uterine cervix. The endometrium measures 7 mm in thickness, and is hyperechoic. There is no demonstrated endometrial mass. There is no demonstrated myometrial mass. I.U.D. - The patient does not have an I.U.D. The right ovary is visualized. The right ovary measures 2.9 x 3.0 x 1.2 cm. There is no right ovarian cyst or ovarian mass. There is no visualized right adnexal mass or complex lesion. There is normal arterial and normal venous vascularity. The left ovary is visualized. The left ovary measures 2.4 x 2.1 x 1.5 cm. There is no left ovarian cyst or ovarian mass. There is no visualized left adnexal mass or complex lesion. There is normal arterial and normal venous vascularity. There is no fluid in the cul-de-sac. The pre void volume of the bladder was ml. The post void volume of the bladder was ml. Polycystic ovary disease: No. US/Pelvic (Non ) IMPRESSION: Enlarged uterus but no evidence of retained products of conception or endometritis per Electronically Signed: Jeff Saenz MD at 15:22 EDT Tel , Service support ,
== END ==
PROVIDERS: PCP Family Medicine; Referring Provider Obstetrics & Gynecology; Visit Provider Obstetrics & Gynecology
DX: O73.1 Retained portions of placenta and membranes, without hemorrhage (principal); Z3A.00 Weeks of gestation of pregnancy not specified
CPT/HCPCS: 76856

== ENCOUNTER → 2025-03-29 | Outpatient (CLI) | payer OTHER, SELFPAY | END | disposition home or self-care (01) | PROVIDERS: PCP Family Medicine; Visit Provider Advanced Practice Midwife | DX: Z12.4 Encounter for screening for malignant neoplasm of cervix (principal); Z13.29 Encounter for screening for other suspected endocrine disorder | CPT/HCPCS: 36415; 84443; 87624; 88175; G0145 ==